=== PATIENT | male | born 1970 | race Two or more races ===

== ENCOUNTER 2020-03-22 07:36 | Emergency (ER) | payer SELFPAY ==
[~2020-03-22] VITALS: Ht 167.6 cm; Wt 79.4 kg
[2020-03-22 07:41] VITALS: BP 145/74
[2020-03-22] MEDS ORDERED: chlordiazePOXIDE 25mg Cap ORAL ONE (07:45)
--- NOTE | 2020-03-22 08:50 | Emergency Room Report ---
History of Present Illness General Chief Complaint: General Complaint Source: Patient, EMS Present Illness HPI 49-year-old male history of alcohol abuse found naked outside his neighbors lawn, patient reports drinking, his acute altered mental status has since resolved, aggravated by alcohol use alleviated by not utilizing alcohol severity is moderate, patient presents for evaluation and treatment Allergies: Coded Allergies: No Known Allergies (Unverified , 03/22/20) COVID-19 Screening Contact w/high risk pt: No Experienced COVID-19 symptoms?: No COVID-19 Testing performed BAKER PASTRY: No Patient History Past Medical History: see triage record Social History: Reports: smoking, alcohol use Reviewed Nursing Documentation: PMH: Agreed; PSxH: Agreed Nursing Documentation-PMH Past Medical History: No History, Except For History Of Psychiatric Problem: Yes - etoh abuse Review of Systems All Other Systems: negative except mentioned in HPI Physical Exam Vital Signs Date Time Temp Pulse Resp B/P (MAP) Pulse Ox O2 Delivery O2 Flow Rate FiO2 03/22/20 07:30 97.0 106 18 150/78 (102) 98 Room Air General Appearance: well appearing, no apparent distress Head: normocephalic, atraumatic ENT: hearing grossly normal, normal voice Neck: full range of motion, supple Respiratory: no respiratory distress, speaking full sentences Neurologic: alert, normal gait Psychiatric: mood/affect normal Skin: no rash Medical Decision Making Homeless Attestation I, The treating physician Dr. Blanco, have assessed and agrees that patient is medically stable for discharge to an outpatient disposition. Diagnostic Impression: Primary Impression: Alcohol use disorder ER Course 49-year-old male presents with status post acute intoxication now resolved patient given a Librium, patient provided clothes and food Patient counseled importance of alcohol cessation disposition home with return precautions follow-up with PCP Last Vital Signs Date Time Temp Pulse Resp B/P (MAP) Pulse Ox O2 Delivery O2 Flow Rate FiO2 03/22/20 07:41 94 20 Room Air 03/22/20 07:41 97.3 145/74 99 Disposition: HOME, SELF-CARE Condition: Stable Scripts No Active Prescriptions or Reported Meds Referrals: NOT CHOSEN IPA/,REFERRING (PCP) [facility] Patient Instructions: Alcohol Use Disorder Additional Instructions: The patient was provided with discharge instructions, notified to follow-up with a primary care doctor and or specialist in the next 24-48 hours, and to return to the ED if they have worsening of their symptoms. Please note that this report is being documented using [employer] technology. This can lead to erroneous entry secondary to incorrect interpretation by the dictating instrument. Denzel Blanco MD Mar 22, 2020 08:50
[2020-03-22 10:20] VITALS: BP 141/83
== END 2020-03-22 10:20 | disposition home or self-care (01) ==
LOC: EDBD 07:36 → EMR 08:10
DX: F10.129 Alcohol abuse with intoxication, unspecified (principal); F17.200 Nicotine dependence, unspecified, uncomplicated
CPT/HCPCS: 99281